=== PATIENT | male | born 1945 | race Hispanic/Latino ===

== ENCOUNTER 2016-07-25 08:43 | Outpatient (CLI) | payer MEDICARE ==
[2016-07-25 09:06] LABS: Bilirubin Negative (Negative); Blood, Urine Trace (Negative); Clarity Clear (Clear); Glucose, Urine (Dipstick) Negative (Negative); Leukocyte Negative (Negative); Nitrite Negative (Negative); Protein, Urine (Dipstick) Negative (Neg-Trace); Specific Gravity, Urine 1.025 (1.005-1.030); Urobilinogen 0.2 mg/dL (0.2-1.0); pH, Urine 5.5 (5.0-9.0)
[2016-07-25 09:16] LABS: RBC/HPF 0-3 HPF (0-3)
[2016-07-25 09:17] LABS: Bacteria/HPF Rare-Few HPF (None Seen); Squamous Epithelial None Seen HPF (0-3); WBC/HPF 0-3 HPF (0-3)
[2016-07-25 09:18] LABS: Hemoglobin A1c 5.4 % (4.0-6.0)
[2016-07-25 10:14] LABS: PSA-Asymptomatic (SCREENING) 1.33 ng/mL (0-4.0); Thyroid Stimulating Hormone 12.1739 uIU/mL (0.35-4.94)
[2016-07-25 10:22] LABS: Free T4 (Free Thyroxine) 0.81 ng/dL (0.70-1.48)
[2016-07-25 17:30] LABS: Creatinine, Urine 133.2 mg/dL (63-166); Microalbumin Urine 2.4 mg/dL (0.5-50.0)
== END 2016-07-25 08:44 | disposition home or self-care (01) ==
LOC: MADLAB 08:43
PROVIDERS: ATTEND Family Medicine
DX: Z12.5 Encounter for screening for malignant neoplasm of prostate (principal); E03.9 Hypothyroidism, unspecified; E11.9 Type 2 diabetes mellitus without complications; R35.0 Frequency of micturition
CPT/HCPCS: 36415; 81001; 82043; 82570; 83036; 84439; 84443; 87086; G0103

== ENCOUNTER 2016-12-16 07:41 | Outpatient (CLI) | payer MEDICARE ==
[2016-12-16 08:27] LABS: Cardiac Risk 3.2 (Less than 4.5)
== END 2016-12-16 07:42 ==
LOC: MADLAB 07:41
PROVIDERS: ATTEND Family Medicine
DX: E11.9 Type 2 diabetes mellitus without complications (principal); I10 Essential (primary) hypertension
CPT/HCPCS: 36415; 80061; 83036

== ENCOUNTER 2022-08-29 11:58 | Outpatient (CLI) | payer MEDICARE | END 2022-08-29 11:59 | disposition home or self-care (01) | LOC: MADRAD 11:58 | PROVIDERS: ATTEND Family Medicine | DX: M25.561 Pain in right knee (principal) ==

== ENCOUNTER 2023-08-03 09:56 | Outpatient (CLI) | payer MEDICARE | END 2023-08-03 09:57 | disposition home or self-care (01) | LOC: MADRAD 09:56 | PROVIDERS: ATTEND Family Medicine | DX: L97.322 Non-pressure chronic ulcer of left ankle with fat layer exposed (principal) ==

== ENCOUNTER 2025-07-02 09:21 | Outpatient (CLI) | payer MEDICARE ==
[2025-07-02 09:52] LABS: Glucose, Urine (Dipstick) Negative (Negative); Leukocyte Negative (Negative); Protein, Urine (Dipstick) Trace mg/dL (Neg-Trace); Specific Gravity, Urine 1.015 (1.005-1.030)
[2025-07-02 10:04] LABS: ALT (SGPT) 15 U/L (Less than 45); AST (SGOT) 33 U/L (11-34); Albumin 4.7 g/dL (3.1-4.5); Alkaline Phosphatase 66 U/L (40-110); Anion Gap 16 mmol/L (10-20); BUN (Urea Nitrogen) 16 mg/dL (8.4-25.7); Bilirubin, Total 0.7 mg/dL (0.3-1.2); Calc. Creatinine Clearance 0 mL/min (70-130); Calcium 9.6 mg/dL (7.8-10.44); Carbon Dioxide 25 mmol/L (23-31); Cardiac Risk 4.6 (Less than 4.5); Chloride 103 mmol/L (98-107); Cholesterol 184 mg/dl (< 200 Desired); Globulin 3.8 g/dL (2.4-3.5); Glucose 121 mg/dL (83-110); HDL Cholesterol 40 mg/dL (>60 Neg Risk); Hematocrit 50.6 % (42.0-52.0); Hemoglobin 17.6 g/dL (14.0-18.0); LDL Cholesterol, Calculated 116 mg/dL; Mean Corpuscular Hemoglobin 43.2 pg (27.0-31.0); Mean Corpuscular Volume 126.3 fl (78.0-98.0); Platelet Count 288 10x3/uL (130-400); Potassium 4.3 mmol/L (3.5-5.1); Red Blood Cell (RBC) Count 4.22 mill/uL (4.70-6.10); Sodium 140 mmol/L (136-145); Triglycerides 142 mg/dL (Less than 150); White Blood Cell (WBC) Count 10.5 10x3/uL (4.8-10.8)
[2025-07-02 10:05] LABS: Bacteria/HPF Rare-Few HPF (None Seen); RBC/HPF 0-3 HPF (0-3); WBC/HPF 0-3 HPF (0-3)
[2025-07-02 10:24] LABS: Thyroid Stimulating Hormone 8.95 uIU/mL (0.35-4.94)
[2025-07-02 10:56] LABS: MDiff Complete? YES
[2025-07-02 10:57] LABS: Anisocytosis SLIGHT = 6-15 cells (100X) (0-5/hpf); Macrocytosis SLIGHT = 6-15 cells (100X) (0-5/hpf); Platelet Adequacy Comment Appears Adequate
[2025-07-02 15:59] LABS: PSA-Asymptomatic (SCREENING) 0.733 ng/mL (0-4.0)
[2025-07-02 16:19] LABS: Free T4 (Free Thyroxine) 1.25 ng/dL (0.70-1.48)
== END 2025-07-02 09:22 | disposition home or self-care (01) ==
LOC: MADLAB 09:21
PROVIDERS: ATTEND Family Medicine
DX: Z00.00 Encounter for general adult medical examination without abnormal findings (principal); Z12.5 Encounter for screening for malignant neoplasm of prostate; E03.9 Hypothyroidism, unspecified; E11.9 Type 2 diabetes mellitus without complications
CPT/HCPCS: 36415; 80053; 80061; 81001; 82043; 83036; 84439; 84443; 84481; 85025; G0103